=== PATIENT | female | born 1960 | race Caucasian/White ===

== ENCOUNTER → 2025-06-04 | Outpatient (CLI) | payer MEDICARE, SELFPAY ==
--- NOTE | 2025-06-04 09:15 | XR_ITS ---
Examination: Screening digital mammography, bilateral Computer aided detection 3-D breast Tomosynthesis, bilateral Date and time of exam: June 04, 2025 0912 hours Compared to mammograms dating to July 06, 2022 Indication: Screening Technique: Nonmagnified MLO, CC views of the breasts to been obtained, reconstructed from 3-D Tomosynthesis images. R2 computer aided detection program utilized for evaluation of suspicious masses and/or abnormal calcifications. 3-D Tomosynthesis images obtained. Findings: The breasts are heterogeneously dense, which may obscure small masses Again noted focal asymmetry 6 mm outer left breast noted on the February 13, 2024 mammogram Benign calcifications Impression: BI-RADS Category 0: Incomplete: Need additional imaging evaluation Recommend repeat left breast sonography to assess the 6 mm focal asymmetry outer left breast on the CC view
== END | disposition home or self-care (01) ==
LOC: CDIM 08:51
PROVIDERS: Referring Provider Nurse Practitioner; Visit Provider Nurse Practitioner
DX: Z12.31 Encounter for screening mammogram for malignant neoplasm of breast (principal); N64.89 Other specified disorders of breast
CPT/HCPCS: 77063; 77067

== ENCOUNTER → 2025-08-01 | Outpatient (CLI) | payer MEDICARE, SELFPAY ==
--- NOTE | 2025-08-01 13:30 | XR_ITS ---
Examination: Breast ultrasound, unilateral, left complete Date and time of exam: August 01, 2025 1346 hours INDICATIONS: Mammogram June 04, 2025 focal asymmetry 6 mm outer left breast Technique: Real-time cramer scale ultrasonographic imaging performed left breast including all 4 quadrants as well as nipple retroareolar and axillary region. Findings: No cystic or solid mass IMPRESSION: BI-RADS Category 1: Negative study
== END | disposition home or self-care (01) ==
PROVIDERS: Referring Provider Nurse Practitioner; Visit Provider Nurse Practitioner
DX: R92.2 Inconclusive mammogram (principal); N64.89 Other specified disorders of breast
CPT/HCPCS: 76641